=== PATIENT | male | born 1985 | race Caucasian/White ===

== ENCOUNTER 2018-01-26 16:01 | Emergency (ER) | payer OTHER ==
[2018-01-26] MEDS: TETRACAINE 0.5% OPHTH SOLUTION 4ML BOTTLE. OD (16:30)
[2018-01-26] MEDS: FLUORESCEIN OPHTH TEST STRIP. OD (16:30)
== END 2018-01-26 17:02 | disposition home or self-care (01) ==
LOC: ER 16:01
DX: T15.01XA Foreign body in cornea, right eye, initial encounter (principal); Z88.5 Allergy status to narcotic agent; X58.XXXA Exposure to other specified factors, initial encounter; Y93.89 Activity, other specified; Y99.8 Other external cause status; Y92.148 Other place in prison as the place of occurrence of the external cause
CPT/HCPCS: 65222; 99284-25